=== PATIENT | female | born 2000 | race Caucasian/White ===

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

== ENCOUNTER 2018-02-02 23:31 | Emergency (ER) | payer BC, OTHER ==
[~2018-02-02] VITALS: Ht 160 cm; Wt 68.0 kg
[~2018-02-02 23:31] MED LIST changes: +IBUP-1060 PO
[2018-02-02 23:55] VITALS: BP 118/71
--- NOTE | 2018-02-03 00:40 | PHYS DOC ---
Past Medical History Past Medical History: Endometriosis Additional Past Medical Histor: OVARIAN CYSTS Additional Past Surgical Histo: LAPROSCOPIC CYST REMOVAL Alcohol Use: None Drug Use: None Adult General Chief Complaint Chief Complaint: TEST [facility] Patient is a 17 year old female who presents with test this evening with concerns about and endometriosis. Patient states her last menstrual period was approximately 2 months ago but that she normally has irregular menstrual periods. Patient states she has a documented history of endometriosis and was seen a inking machine tender while she was in foster care. Patient states she's been out foster care for 2 years and is now living with her fianc . Patient took a home test actually one hour ago and came directly to the emergency department because she remembers that her OB doctor told her sugar got she would be at higher risk of complications given the history of endometriosis. Patient has no complaints at this time but based on the memory of that interaction with her physician came in to be sure that everything would be okay with this . She also stated paperwork for her [facility] worker so that she could get help from the system to establish care for this . Patient has no other acute concerns at this time. Review of Systems Review of Systems Constitutional: Denies fever or chills [] Eyes: Denies change in visual acuity, redness, or eye pain [] HENT: Denies nasal congestion or sore throat [] Respiratory: Denies cough or shortness of breath [] Cardiovascular: No additional information not addressed in HPI [] GI: Denies abdominal pain, nausea, vomiting, bloody stools or diarrhea [] : Denies dysuria or hematuria [] Musculoskeletal: Denies back pain or joint pain [] Integument: Denies rash or skin lesions [] Neurologic: Denies headache, focal weakness or sensory changes [] Endocrine: Denies polyuria or polydipsia [] All other systems were reviewed and found to be within normal limits, except as documented in this note. Allergies Allergies Allergies Coded Allergies Type Severity Reaction Last Updated Verified No Known Drug Allergies 10/05/17 No Physical Exam Physical Exam Constitutional: Well developed, well nourished, no acute distress, non-toxic appearance. [] HENT: Normocephalic, atraumatic, bilateral external ears normal, oropharynx moist, no oral exudates, nose normal. [] Eyes: PERRLA, EOMI, conjunctiva normal, no discharge. [] Neck: Normal range of motion, no tenderness, supple, no stridor. [] Cardiovascular:Heart rate regular rhythm, no murmur [] Lungs & Thorax: Bilateral breath sounds clear to auscultation [] Abdomen: Bowel sounds normal, soft, no tenderness, no masses, no pulsatile masses. [] Skin: Warm, dry, no erythema, no rash. [] Back: No tenderness, no CVA tenderness. [] Extremities: No tenderness, no cyanosis, no clubbing, ROM intact, no edema. [] Neurologic: Alert and oriented X 3, normal motor function, normal sensory function, no focal deficits noted. [] Psychologic: Affect normal, judgement normal, mood normal. [] Current Patient Data Vital Signs Vital Signs Date Time Temp Pulse Resp B/P (MAP) Pulse Ox O2 Delivery O2 Flow Rate FiO2 02/02/18 23:55 98.0 112 20 118/71 (87) 99 Room Air 98.0 Lab Values Laboratory Tests Test 02/02/18 23:44 POC Urine HCG, Qualitative Hcg positive (Negative) EKG EKG [] Radiology/Procedures Radiology/Procedures [] Course & Med Decision Making Course & Med Decision Making Pertinent Labs and Imaging studies reviewed. (See chart for details) [] Dragon Disclaimer Dragon Disclaimer This electronic medical record was generated, in whole or in part, using a voice recognition dictation system. Departure Departure Impression: Primary Impression: Additional Impression: Hx of endometriosis Disposition: HOME, SELF-CARE Condition: STABLE Referrals: RICHARD CRUZ MD Patient Instructions: - First Trimester, [id number] Problem Qualifiers MARC HERNANDEZ MD Feb 03, 2018 00:40
== END 2018-02-03 00:40 | disposition home or self-care (01) ==
LOC: ER 23:31
DX: Z32.01 Encounter for pregnancy test, result positive (principal); Z87.42 Personal history of other diseases of the female genital tract
CPT/HCPCS: 81025; 99283

== ENCOUNTER 2018-07-25 11:28 | Emergency (ER) | payer BC, OTHER ==
[~2018-07-25] VITALS: Ht 160 cm; Wt 75.3 kg
[2018-07-25 11:30] VITALS: BP 98/72
[2018-07-25] MEDS ORDERED: CLIN150C14 PO (11:47)
--- NOTE | 2018-07-25 11:47 | PHYS DOC ---
Past Medical History Past Medical History: Endometriosis Additional Past Medical Histor: OVARIAN CYSTS (ABRAHAM ELDER APRN) Additional Past Surgical Histo: LAPROSCOPIC CYST REMOVAL (ABRAHAM ELDER APRN) Alcohol Use: None Drug Use: None (ABRAHAM ELDER APRN) Adult General Chief Complaint Chief Complaint: SORE THROAT HPI HPI Patient is a 17 year old female 1 para 0 currently 29 weeks presenting to the ED today with sore throat for 3 days. Patient denies any fever coughing or congestion. 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 She states she has history of strep infections and amoxicillin does not work for her. (ABRAHAM ELDER APRN) Review of Systems Review of Systems Constitutional: Denies fever or chills [] Eyes: Denies change in visual acuity, redness, or eye pain [] HENT: Reports sore throat. Denies nasal congestion or sore throat [] Respiratory: Denies cough or shortness of breath [] Cardiovascular: No additional information not addressed in HPI [] GI: Reports . Denies abdominal pain, nausea, vomiting, bloody stools or diarrhea [] : Denies dysuria or hematuria [] Musculoskeletal: Denies back pain or joint pain [] Integument: Denies rash or skin lesions [] Neurologic: Denies headache, focal weakness or sensory changes [] All other systems were reviewed and found to be within normal limits, except as documented in this note. (ABRAHAM ELDER APRN) Allergies Allergies Allergies Coded Allergies Type Severity Reaction Last Updated Verified No Known Drug Allergies 10/05/17 No (FRED GTZ MD) Physical Exam Physical Exam Constitutional: Well developed, well nourished, no acute distress, non-toxic appearance. [] HENT: Normocephalic, atraumatic, bilateral external ears normal, oropharynx moist, no oral exudates, nose normal. [] +3 tonsils with mild erythema and exudate mostly on the left side. Midline uvula. +2 Anterior cervical adenopathy Eyes: PERRLA, EOMI, conjunctiva normal, no discharge. [] Neck: Normal range of motion, no tenderness, supple, no stridor. [] Cardiovascular:Heart rate regular rhythm, no murmur [] Lungs & Thorax: Bilateral breath sounds clear to auscultation [] Abdomen: Bowel sounds normal, soft, no tenderness, no masses, no pulsatile masses. [] Skin: Warm, dry, no erythema, no rash. [] Back: No tenderness, no CVA tenderness. [] Extremities: No tenderness, no cyanosis, no clubbing, ROM intact, no edema. [] Neurologic: Alert and oriented X 3, normal motor function, normal sensory function, no focal deficits noted. [] Psychologic: Affect normal, judgement normal, mood normal. [] (ABRAHAM ELDER APRN) Current Patient Data Vital Signs Vital Signs Date Time Temp Pulse Resp B/P (MAP) Pulse Ox O2 Delivery O2 Flow Rate FiO2 07/25/18 11:30 98.0 112 18 98/72 (81) 98 Room Air 98.0 (FRED GTZ MD) EKG EKG [] (ABRAHAM ELDER APRN) Radiology/Procedures Radiology/Procedures [] (ABRAHAM ELDER APRN) Course & Med Decision Making Course & Med Decision Making Pertinent Labs and Imaging studies reviewed. (See chart for details) This is a 17-year-old female patient currently 29 weeks presenting to the ED today with sore throat for 3 days. Physical exam consistent with tonsillitis. Patient states amoxicillin does not work for her. We'll discharge her on Clindamycin. She states she has been informed if she has strep again she needs to be seen by ENT to have her tonsils removed but she is currently. Salt water gurgles recommended. F/u with ENT, OB and PCP next week. (ABRAHAM ELDER APRN) Course & Med Decision Making Staff Physician Addendum: I was working in the ER during the course of this patient's visit. I was available for consultation as needed, but I was not directly involved in the care of this patient. (FRED GTZ MD) Dragon Disclaimer Dragon Disclaimer This electronic medical record was generated, in whole or in part, using a voice recognition dictation system. (ABRAHAM ELDER APRN) Departure Departure Impression: Primary Impression: Acute tonsillitis Disposition: HOME, SELF-CARE Condition: STABLE Referrals: NO PCP (PCP) JAMILAH MENA MD Patient Instructions: Tonsillitis Additional Instructions: You have acute tonsillitis. We put you on antibiotics, ensure you complete them. Use saltwater gargles. Take Tylenol as needed for pain. Please follow-up with ENT, your BANK ANALYST and primary care doctor in the next 1-2 weeks. Scripts Clindamycin Hcl (CLINDAMYCIN HCL) 150 Mg Capsule 2 CAP PO TID, #60 CAP Prov: ABRAHAM ELDER APRN 07/25/18 Problem Qualifiers Primary Impression: Acute tonsillitis Pharyngitis/tonsillitis etiology: unspecified etiology Qualified Codes: J03.90 - Acute tonsillitis, unspecified ABRAHAM ELDER APRN Jul 25, 2018 11:47 FRED GTZ MD Jul 27, 2018 07:23
== END 2018-07-25 12:00 | disposition home or self-care (01) ==
LOC: ER 11:28
DX: O99.513 Diseases of the respiratory system complicating pregnancy, third trimester (principal); J03.90 Acute tonsillitis, unspecified; Z3A.29 29 weeks gestation of pregnancy
CPT/HCPCS: 99283

== ENCOUNTER 2021-04-16 12:36 | Emergency (ER) | payer BC, OTHER ==
[~2021-04-16 12:36] MED LIST changes: +CLIN150C16 PO
--- NOTE | 2021-04-16 12:39 | PHYS DOC ---
Past Medical History Past Medical History: Endometriosis Additional Past Medical Histor: OVARIAN CYSTS Past Surgical History: Other Additional Past Surgical Histo: LAP FOR ENDOMETRIOSIS Smoking Status: Never Smoker Alcohol Use: None Drug Use: None General Adult EDM: Chief Complaint: PAIN ON URINATION HPI: HPI: Patient is a 20 year old female who initially presented for dysuria. She was left prior to being seen Heart Score: C/O Chest Pain: No Risk Factors: Risk Factors: DM, Current or recent (<one month) smoker, HTN, HLP, family history of CAD, obesity. Risk Scores: Score 0 - 3: 2.5% MACE over next 6 weeks - Discharge Home Score 4 - 6: 20.3% MACE over next 6 weeks - Admit for Clinical Observation Score 7 - 10: 72.7% MACE over next 6 weeks - Early Invasive Strategies Allergies: Allergies: Allergies Coded Allergies Type Severity Reaction Last Updated Verified No Known Drug Allergies 10/05/17 No EKG: EKG: [] Radiology/Procedures: Radiology/Procedures: [] Course & Med Decision Making: Course & Med Decision Making Patient left prior to being seen Agustín Disclaimer: Agustín Disclaimer: This electronic medical record was generated, in whole or in part, using a voice recognition dictation system. Departure Departure Impression: Primary Impression: Patient left without being seen Disposition: LEFT WITHOUT BEING SEEN Condition: LEFT WITHOUT BEING SEEN Referrals: NO PCP (PCP) LAW PIMENTEL DO Apr 16, 2021 12:39
== END 2021-04-16 12:40 | disposition left against medical advice (07) ==
LOC: ER 12:36
DX: R30.0 Dysuria (principal); Z53.21 Procedure and treatment not carried out due to patient leaving prior to being seen by health care provider